=== PATIENT | male | born 1970 | race Caucasian/White ===

== ENCOUNTER 2016-11-11 22:33 | Emergency (ER) | payer OTHER ==
[2016-11-11 22:38] VITALS: BP 140/80; PULSE 68; TEMP 97.8; BMI 27.4
--- NOTE | 2016-11-11 23:26 | PDOC ---
History of Present Illness - General Chief Complaint: Laceration Stated Complaint: LACERATION Time Seen by Provider: 11/11/16 22:52 - History of Present Illness Initial Comments: 11/11/16 23:26 Mr. Harris is a 46 yo male with a significant past medical history of HTN and Hypercholesterolemia who presents to the emergency department following a laceration to his R middle finger while chopping celery at his job earlier this evening. The patient denies chest pain, shortness of breath, headache and dizziness. Denies fever, chills, nausea, vomit, diarrhea and constipation. Denies dysuria, frequency, urgency and hematuria. Allergies: NKDA Past surgical history: Denies 11/12/16 00:25 Past History - Past Medical History Allergies/Adverse Reactions: Allergies Allergy/AdvReac Type Severity Reaction Status Date / Time No Known Allergies Allergy Verified 11/11/16 22:38 Home Medications: Ambulatory Orders Metoprolol Succinate [Toprol XL -] 1 tab PO BID 11/11/16 Simvastatin [Zocor -] 20 mg PO HS 11/11/16 Cephalexin [Keflex] 500 mg PO BID #10 capsule 11/12/16 HTN: Yes - Immunization History Immunization Up to Date: No - Psycho/Social/Smoking Cessation Hx Anxiety: No Suicidal Ideation: No Smoking History: Current some day smoker Have you smoked in the past 12 months: Yes Number of Cigarettes Smoked Daily: 3 Information on smoking cessation initiated: No Review of Systems - Review of Systems Comments:: 11/11/16 23:26 GENERAL/CONSTITUTIONAL: No fever or chills. No weakness. HEAD, EYES, EARS, NOSE AND THROAT: No change in vision. No ear pain or discharge. No sore throat. CARDIOVASCULAR: No chest pain or shortness of breath RESPIRATORY: No cough, wheezing, or hemoptysis. GASTROINTESTINAL: No nausea, vomiting, diarrhea or constipation. GENITOURINARY: No dysuria, frequency, or change in urination. MUSCULOSKELETAL: +Right hand middle finger cut. No joint or muscle swelling or pain. No neck or back pain. SKIN: No rash NEUROLOGIC: No headache, vertigo, loss of consciousness, or change in strength/ sensation. ENDOCRINE: No increased thirst. No abnormal weight change HEMATOLOGIC/LYMPHATIC: No anemia, easy bleeding, or history of blood clots. ALLERGIC/IMMUNOLOGIC: No hives or skin allergy. *Physical Exam - Vital Signs Last Vital Signs Temp Pulse Resp BP Pulse Ox 97.8 F 68 18 140/80 99 11/11/16 22:34 11/11/16 22:34 11/11/16 22:34 11/11/16 22:34 11/11/16 22:34 - Physical Exam Comments: 11/11/16 23:26 GENERAL: Awake, alert, and fully oriented, in no acute distress HEAD: No signs of trauma, normocephalic, atraumatic EYES: PERRLA, EOMI, sclera anicteric, conjunctiva clear ENT: Auricles normal inspection, hearing grossly normal, nares patent, oropharynx clear without exudates. Moist mucosa NECK: Normal ROM, supple, no lymphadenopathy, JVD, or masses LUNGS: No distress, speaks full sentences, clear to auscultation bilaterally HEART: Regular rate and rhythm, normal S1 and S2, no murmurs, rubs or gallops, peripheral pulses normal and equal bilaterally. ABDOMEN: Soft, nontender, normoactive bowel sounds. No guarding, no rebound. No masses EXTREMITIES: +2 cm laceration of R third digit at the distal phalange. Normal inspection, Normal range of motion, no edema. No clubbing or cyanosis. NEUROLOGICAL: Cranial nerves II through XII grossly intact. Normal speech, normal gait, no focal sensorimotor deficits SKIN: Warm, Dry, normal turgor, no rashes or lesions noted. 11/12/16 00:25 Procedures - Laceration/Wound Repair Right Anterior Distal Finger 3rd digit Wound Length: to 2.5 cm Wound Explored: clean Wound's Depth, Shape: superficial Irrigated w/ Saline: No Betadine Prep: No Anesthesia: 1% Lidocaine Amount of Anesthetic (ccs): 5 Wound Debrided: minimal Wound Repaired With: Sutures Suture Size/Type: 4:0 Number of Sutures: 4 Layer Closure: No Medical Decision Making - Medical Decision Making 11/12/16 00:23 Laceration repair completed. Tetanus booster delivered and prophylactic ABX script written for follow-up. *DC/Admit/Observation/Transfer Diagnosis at time of Disposition: Laceration - Discharge Dispostion Disposition: HOME - Prescriptions Prescriptions: Cephalexin [Keflex] 500 mg PO BID #10 capsule - Patient Instructions Printed Discharge Instructions: DI for Laceration Repair Additional Instructions: Control pain with over the counter (OTC) medications. Return to ER if any fever , increased pain not controllable with OTCs, or other concerning symptoms.
[2016-11-11] MEDS ORDERED: DIPHTH,PERTUSS(ACELL),TET 0.5 ML DISP.SYRIN IM ONE (23:57)
--- NOTE | 2016-11-12 00:03 | PDOC ---
Attending Attestation - Resident Resident Name: HareshlauraJuve michaels - HPI HPI: 11/12/16 00:00 Pt cut his finger while chopping veggies at work. Now with flap at the right middle fingertip. Tetanus toxoid not UTD Pt has htn but no DM - Physicial Exam PE: 11/12/16 00:01 agree with resident note - Medical Decision Making 11/12/16 00:01 Sutures 4.0 absorbable x 3 tetanus toxoid given Home with keflex prophylaxis pain meds with tylenol and motrin
[2016-11-12] MEDS ORDERED: CEPHALEXIN MONOHYDRATE 500 MG CAPSULE (UD) PO ONE (00:20)
[2016-11-12] MEDS ORDERED: CEPHALEXIN MONOHYDRATE 250 MG CAPSULE (FP) ONE (00:23)
== END 2016-11-12 00:30 | disposition home or self-care (01) ==
LOC: JER 22:33
PROC: 0HQFXZZ Repair Right Hand Skin, External Approach (ICD-10-PCS; principal; 2016-11-11)
PROC: 3E0234Z Introduction of Serum, Toxoid and Vaccine into Muscle, Percutaneous Approach (ICD-10-PCS; 2016-11-11)
DX: S61.212A Laceration without foreign body of right middle finger without damage to nail, initial encounter (principal); W26.0XXA Contact with knife, initial encounter; Y93.G1 Activity, food preparation and clean up; Y92.511 Restaurant or cafe as the place of occurrence of the external cause; Y99.0 Civilian activity done for income or pay
CPT/HCPCS: 90715; 99283-25